=== PATIENT | female | born 1965 | race Caucasian/White ===

== ENCOUNTER → 2020-04-18 18:29 | Outpatient (BNVA) | payer OTHER, SELFPAY | PROVIDERS: Visit Provider Nurse Practitioner Family | DX: S99.911A Unspecified injury of right ankle, initial encounter (principal); M79.671 Pain in right foot; W31.89XA Contact with other specified machinery, initial encounter | CPT/HCPCS: 73610; 73630 ==

== ENCOUNTER → 2020-06-03 13:42 | Outpatient (BNVA) | payer OTHER, SELFPAY | PROVIDERS: Visit Provider Obstetrics & Gynecology | DX: Z01.812 Encounter for preprocedural laboratory examination (principal) | CPT/HCPCS: 81025; 88305 ==

== ENCOUNTER 2020-06-22 09:00 | Outpatient (CLI) | payer OTHER, SELFPAY ==
--- NOTE | 2020-06-22 09:03 | MM_ITS ---
WS: [id number] BILATERAL DIGITAL SCREENING MAMMOGRAPHY WITH CAD CLINICAL INFORMATION: SCREENING HISTORY: Screening mammogram. No current complaints. COMPARISON: 018 TECHNIQUE: Bilateral CC and MLO views. FINDINGS: The breasts are composed of heterogeneous fibroglandular density tissue, which can limit the detectio n of small underlying mass lesions. No suspicious mass, asymmetry, calcifications, or architectural d istortion. No evidence of malignancy. Bilateral punctate calcifications are similar in appearance. MM/[place] [id number] IMPRESSION: BI-RADS: 2-Benign FOLLOW UP: 1 Year Follow-up Recommend return to annual screening mammography.
== END 2020-06-22 09:01 | disposition home or self-care (01) ==
LOC: RADSHAW 09:02
PROVIDERS: PCP Nurse Practitioner Family; Visit Provider Nurse Practitioner Family
DX: Z12.31 Encounter for screening mammogram for malignant neoplasm of breast (principal)
CPT/HCPCS: 77067

== ENCOUNTER → 2020-07-30 14:04 | Outpatient (BNVA) | payer OTHER, SELFPAY | PROVIDERS: PCP Nurse Practitioner Family; Referring Provider Nurse Practitioner Family; Visit Provider Podiatrist Foot & Ankle Surgery | DX: M25.571 Pain in right ankle and joints of right foot (principal); S93.431A Sprain of tibiofibular ligament of right ankle, initial encounter; X58.XXXA Exposure to other specified factors, initial encounter | CPT/HCPCS: 73620; 73630 ==

== ENCOUNTER 2020-08-23 12:44 | Outpatient (CLI) | payer OTHER, SELFPAY ==
--- NOTE | 2020-08-23 13:00 | MR_ITS ---
WS: [id number] MRI RIGHT ANKLE NONCONTRAST TECHNIQUE: Sagittal proton density, sagittal STIR, axial proton density, axial T1, axial T2 fat sat, coronal proton density, coronal proton density fat sat, coronal T2 fat sat. CLINICAL INFORMATION: S93.431A - Sprain of tibiofibular ligament of right ankle, initial encounter COMPARISON: None. FINDINGS: Normal ankle mortise. Normal medial and lateral malleolus. No avulsion fractures. Talus is normal in appearance. Normal calcaneus. No significant soft tissue edema. Distal Achilles is normal in appearan ce. Peroneal tendons are normal in appearance. Normal extensor compartment tendons. Small amount of t enosynovitis along the flexor compartment tendons tibialis posterior and flexor digitorum longus. Normal bone marrow signal in the tarsal bones. Proximal metatarsals appear normal. Normal plantar fas carmen. Anterior and posterior tibiofibular ligaments appear intact. Small joint effusion. Anterior talofibul ar ligament appears intact. MR/MR ankle RT wo con* [id number] IMPRESSION: 1. No significant widening of the syndesmosis. Anterior and posterior tibiofib ular ligaments appear intact. 2. Small joint effusion. 3. Small amount of tenosynovitis along the flexor compartment tendons describe d above. 4. Normal peroneal tendons and peroneal tendon sheath. 5. Normal talus and calcaneus. Normal medial and lateral malleolus. No avulsio n fractures.
== END 2020-08-23 12:45 | disposition home or self-care (01) ==
PROVIDERS: PCP Nurse Practitioner Family; Visit Provider Podiatrist Foot & Ankle Surgery
DX: S93.431A Sprain of tibiofibular ligament of right ankle, initial encounter (principal); X58.XXXA Exposure to other specified factors, initial encounter; M25.471 Effusion, right ankle; M65.871 Other synovitis and tenosynovitis, right ankle and foot
CPT/HCPCS: 73721

== ENCOUNTER → 2020-09-04 14:49 | Outpatient (BNVA) | payer OTHER, SELFPAY | PROVIDERS: PCP Nurse Practitioner Family | DX: Z20.828 Contact with and (suspected) exposure to other viral communicable diseases (principal) | CPT/HCPCS: 87635 ==

== ENCOUNTER → 2021-05-18 14:08 | Outpatient (BNVA) | payer OTHER, SELFPAY | PROVIDERS: PCP Nurse Practitioner Family; Visit Provider Family Medicine | DX: J45.20 Mild intermittent asthma, uncomplicated (principal) | CPT/HCPCS: 71046 ==

== ENCOUNTER 2022-08-08 10:42 | Outpatient (CLI) | payer OTHER, SELFPAY ==
--- NOTE | 2022-08-08 11:03 | XRR_ITS ---
PROCEDURE INFORMATION: Exam: XR Right Ankle Exam date and time: 08/08/2022 11:13 AM Age: 56 years old Clinical indication: Injury or trauma; Fall; Sprain or strain; Ankle; Right; Injury date: 08/07/22; Additional info: Right ankle pain after a fall TECHNIQUE: Imaging protocol: Radiologic exam of the Right ankle. Views: 3 or more views. Total images: 341 COMPARISON: MR ankle RT wo con* [id number] 08/23/2020 1:13 PM FINDINGS: Bones/joints: Small joint effusion. No acute fracture nor subluxation. No osseous erosion nor periosteal reaction. Soft tissues: Lateral soft tissue swelling is evident. XR/XR ankle RT min 3V* [id number] IMPRESSION: 1. Small joint effusion. 2. Lateral soft tissue swelling is evident. 3. No acute osseous pathology.
== END 2022-08-08 10:43 | disposition home or self-care (01) ==
PROVIDERS: PCP Family Medicine; Visit Provider Clinical Nurse Specialist Adult Health
DX: M25.571 Pain in right ankle and joints of right foot (principal); W19.XXXA Unspecified fall, initial encounter; M25.471 Effusion, right ankle
CPT/HCPCS: 73610

== ENCOUNTER → 2022-08-23 10:21 | Outpatient (BNVA) | payer OTHER, SELFPAY | PROVIDERS: PCP Family Medicine; Visit Provider Podiatrist Foot & Ankle Surgery | DX: S82.891A Other fracture of right lower leg, initial encounter for closed fracture (principal); W19.XXXA Unspecified fall, initial encounter; Y92.512 Supermarket, store or market as the place of occurrence of the external cause; S93.491A Sprain of other ligament of right ankle, initial encounter | CPT/HCPCS: 73610; 73630 ==

== ENCOUNTER 2022-08-23 10:53 | Outpatient (CLI) | payer OTHER, SELFPAY | END 2022-08-23 10:54 | disposition home or self-care (01) | LOC: SPT 10:53 | PROVIDERS: PCP Family Medicine; Visit Provider Podiatrist Foot & Ankle Surgery | DX: Z46.89 Encounter for fitting and adjustment of other specified devices (principal); S93.401D Sprain of unspecified ligament of right ankle, subsequent encounter; X58.XXXD Exposure to other specified factors, subsequent encounter | CPT/HCPCS: 97760; L1902 ==

== ENCOUNTER → 2022-10-27 16:55 | Outpatient (BNVA) | payer BC, MEDICAID, SELFPAY | PROVIDERS: PCP Family Medicine; Visit Provider Obstetrics & Gynecology | DX: Z01.419 Encounter for gynecological examination (general) (routine) without abnormal findings (principal); Z12.39 Encounter for other screening for malignant neoplasm of breast; Z12.11 Encounter for screening for malignant neoplasm of colon; Z12.4 Encounter for screening for malignant neoplasm of cervix | CPT/HCPCS: 87624 ==

== ENCOUNTER 2022-11-02 13:24 | Outpatient (CLI) | payer BC, MEDICAID, SELFPAY ==
--- NOTE | 2022-11-02 13:34 | MM_ITS ---
WS: [id number] BILATERAL 3D TOMOSYNTHESIS DIGITAL SCREENING MAMMOGRAPHY WITH CAD CLINICAL INFORMATION: Z01.419 - Encounter for gynecological examination (genera... HISTORY: Screening mammogram. No current complaints. COMPARISON: June 22, 2020 TECHNIQUE: Bilateral CC and MLO views. FINDINGS: The breasts are composed of heterogeneous fibroglandular density tissue, which can limit the detectio n of small underlying mass lesions. No suspicious mass, asymmetry, calcifications, or architectural d istortion. No evidence of malignancy. A few incidental punctate calcifications similar in appearance. Stable clustered calcifications RIGHT breast. MM/[place] [id number] IMPRESSION: BI-RADS: 2-Benign FOLLOW UP: 1 Year Follow-up Recommend return to annual screening mammography.
== END 2022-11-02 13:25 | disposition home or self-care (01) ==
LOC: RAD 13:28
PROVIDERS: PCP Family Medicine; Visit Provider Obstetrics & Gynecology
DX: Z12.39 Encounter for other screening for malignant neoplasm of breast (principal)
CPT/HCPCS: 77063; 77067

== ENCOUNTER 2022-11-23 14:54 | Outpatient (CLI) | payer BC, MEDICAID, SELFPAY ==
--- NOTE | 2022-11-23 15:15 | MR_ITS ---
WS: [id number] EXAMINATION: MR foot RT wo con* [id number] ORDER DATE: 11/23/2022 2:58 PM COMPARISON: MRI ankle August 23, 2020 HISTORY: To rule out tendon tear CONTRAST: None. TECHNIQUE: Sagittal T1, sagittal STIR, coronal PD, coronal T2, axial T1, axial T2, and axial PD imagi ng with fat saturation technique. FINDINGS: Normal anatomic alignment. Normal talar dome. Small amount of edema at the tip of the media l malleolus consistent with a tiny tiny nondisplaced avulsion fracture. This is only well visualized on the coronal STIR imaging. Deltoid ligament appears intact. Normal lateral malleolus. Distal Achilles is normal in appearance. N ormal peroneal tendon sheaths. Normal extensor and flexor compartment tendons. ATF and PTF appear int act. Normal bone marrow signal in the visualized fibula. Tiny ankle effusion. Normal bone marrow signal in the metatarsals. Normal navicular. Normal talonavicular articulation. No rmal cuboid. Joint space narrowing at the PIP and DIP joints. A few small erosions in the heads of th e metatarsals. Degenerative cyst in the 3rd middle phalanx. MR/MR foot RT wo con* [id number] IMPRESSION: 1. Small amount of edema with a tiny suspected avulsion at the tip of the medi al malleolus. This appears new since August 23, 2020. Deltoid ligament appear s intact. 2. Normal ankle mortise. Normal lateral malleolus. 3. ATF appears intact. 4. Normal bone marrow signal in the metatarsals with a few small erosions in t he metatarsal heads. 5. Normal talus and calcaneus. 6. Normal ATF. 7. Degenerative cyst involving the 3rd middle phalanx. 8. No other suspicious findings.
== END 2022-11-23 14:55 | disposition home or self-care (01) ==
LOC: RAD 14:57
PROVIDERS: PCP Family Medicine; Visit Provider Podiatrist Foot & Ankle Surgery
DX: M25.571 Pain in right ankle and joints of right foot (principal)
CPT/HCPCS: 73718

== ENCOUNTER 2023-03-10 10:03 | Emergency (ER) | payer BC, MEDICAID, SELFPAY ==
[2023-03-10 10:08] VITALS: BP 162/97; PULSE 68; RESP 16; TEMP 36.5; O2SAT 100; BMI 27.6
--- NOTE | 2023-03-10 10:15 | CTR_ITS ---
PROCEDURE INFORMATION: Exam: CT Abdomen And Pelvis Without Contrast Exam date and time: 03/10/2023 10:26 AM Age: 57 years old Clinical indication: Abdominal pain; Flank; Right; Additional info: Right flank pain TECHNIQUE: Imaging protocol: Computed tomography of the abdomen and pelvis without contrast. Radiation optimization: All CT scans at this facility use at least one of these dose optimization techniques: automated exposure control; mA and/or kV adjustment per patient size (includes targeted exams where dose is matched to clinical indication); or iterative reconstruction. REPORTING DATA: Count of CT and Cardiac NM exams in prior 12 months: This patient has received 0 known CTs and 0 known cardiac nuclear medicine studies in the 12 months prior to the current study. COMPARISON: CR XR chest 2V* [id number] 05/18/2021 5:49 PM RADIATION DOSE METRICS: Total DLP (mGy-cm): 662.49 FINDINGS: Liver: Incompletely characterized low-density lesion measuring 2.5 cm in the left hepatic lobe. Gallbladder and bile ducts: Normal. No calcified stones. No ductal dilation. Pancreas: Normal. No ductal dilation. Spleen: Normal. No splenomegaly. Adrenal glands: Normal. No mass. 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 No hydronephrosis or nephroureterolithiasis. Stomach and bowel: Unremarkable. No obstruction. No mucosal thickening. Appendix: No evidence of appendicitis. Intraperitoneal space: Unremarkable. No free air. No significant fluid collection. Vasculature: Unremarkable. No abdominal aortic aneurysm. Lymph nodes: Unremarkable. No enlarged lymph nodes. Urinary bladder: Unremarkable as visualized. Reproductive: Unremarkable as visualized. Bones/joints: Mild dextrocurvature of the thoracolumbar spine. Soft tissues: Unremarkable. CT/CT abdomen pelvis wo con [id number] IMPRESSION: 1. No acute findings. 2. Incompletely characterized low-density lesion measuring 2.5 cm in the left hepatic lobe. This could be further evaluated with MRI.
[2023-03-10 10:24] LABS: Basophils % 0.4 %; Eosinophils # 0.2 10^3/uL (0.0-0.8); Eosinophils % 3.2 %; Hematocrit 46.6 % (37.0-47.0); Hemoglobin 15.4 g/dL (11.5-15.3); Lymphocytes # 2.5 10^3/uL (0.8-4.8); Lymphocytes % 43.8 %; Mean Corpuscular Hemoglobin 28.4 pg (28.0-34.0); Mean Corpuscular Volume 85.8 fl (81-99); Mean Platelet Volume 11.5 fL (7.4-10.4); Monocytes # 0.4 10^3/uL (0.2-0.9); Monocytes % 6.6 %; Neutrophils # 2.58 10^3/uL (1.8-7.7); Nucleated Red Blood Cells % 0 %; Platelet Count 170 10^3/cmm (130-400); Red Blood Count 5.43 10^6/uL (4.1-5.3); Red Cell Distribution Width 13.7 % (12.1-15.1); White Blood Count 5.6 10^3/uL (4.0-10.0)
[2023-03-10] MEDS: ketorolac 30 mg/mL INJ IVP (10:34)
[2023-03-10 10:47] LABS: Glucose Urine UA Norm (Normal); Ketones Urine Negative (Negative); Protein Urine Neg (Negative); Specific Gravity, Urine 1.005 (1.005-1.030); Urine Appearance Clear (CLEAR); Urine Color Yellow (Yellow); pH Urine 7 (5-7)
[2023-03-10 10:48] LABS: Add Urine Culture? No; Add Urine Microscopic? YES; Bacteria Urine TRACE /hpf; Bilirubin Urine Neg (Negative); Blood Urine 2+ (Negative); Leukocyte Esterase Urine Negative (Negative); Nitrate Urine Negative (Negative); RBC Urine RARE /hpf (0-2); Squamous Epithelial Cell Urine 0-4 /hpf (0-5); Urobilinogen Urine Norm (Negative)
[2023-03-10 11:02] LABS: Alanine Aminotransferase 18 U/L (0-33); Albumin Level 4.7 g/dL (3.5-5.2); Alkaline Phosphatase 82 U/L (35-105); Anion Gap 11.8 (5-19); Aspartate Amino Transferase 14 U/L (0-32); Blood Urea Nitrogen 12 mg/dL (6-20); Calcium 9.4 mg/dL (8.5-10.5); Carbon Dioxide 28 mmol/L (22-29); Chloride 100 mmol/L (98-107); Globulin 3.1 g/dL (1.3-4.6); Glomerular Filtration Rate 74.5 mL/min (90-130); Glucose 85 mg/dL (65-115); Osmolality Calculated 281 mOsm/kg (285-295); Potassium 3.8 mmol/L (3.5-5.1); Sodium 136 mmol/L (136-145); Total Bilirubin 0.5 mg/dL (0.15-1.2); Total Protein 7.8 g/dL (6.6-8.7)
--- NOTE | 2023-03-10 11:15 | PC.NURSE ---
ASSUMED CARE FROM KRISSY DIEZ AT 1115
--- NOTE | 2023-03-10 11:16 | W.ED.ABDPA2 ---
HPI - Abdominal Pain General: Chief Complaint: Abdominal Pain Stated Complaint: back pain, dizzy Time Seen by Provider: 03/10/23 10:04 History of Present Illness: Patient presents to the ER with complaints of right-sided low back pain since yesterday. Patient states she drove 6 hours yesterday and the pain is gotten worse this morning. Patient does have a history of kidney stones which this feels similar to. Patient has not had any change in urination or hematuria. Pain is dull achy in nature on her right low back does radiate, to her right front region. It is worse with movement. It is not relieved or improved with not moving. 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) Surgical History No history of previous surgery Family History Father Hypertension Stroke Mother Lymphoma Denies family history of Diabetes Clotting disorder Hyperlipidemia Anesthesia complication Bleeding disorder Social History Substance/Drug Use: never Physical Exam Const: COMMON NORMALS: no acute distress, average body habitus, patient oriented x3, no limitations, healthy appearing, alert and well nourished HENMT: COMMON NORMALS: normocephalic, atraumatic, hearing grossly normal bilaterally, external ears normal, Normal external nose present and moist oral mucous membranes HEAD & SCALP: normocephalic and atraumatic NOSE: Normal external nose present EXTERNAL EAR: Yes external ears normal Eye: COMMON NORMALS: Equal, round and reactive pupils present, EOMs intact bilaterally, conjunctivae normal and no scleral icterus CONJUNCTIVA: Yes conjunctivae normal PUPIL: Yes Equal, round and reactive pupils present Neck/C-Spine: COMMON NORMALS: full ROM, no lymphadenopathy, supple, no meningeal signs, no JVD and Thyroid normal THYROID: Thyroid normal Lymph: LYMPHATIC: no lymphadenopathy noted and no lymphedema noted Chest: COMMONS NORMALS: normal inspection of the chest and normal palpation of entire chest wall Resp: COMMON NORMALS: normal respiratory effort, No retractions, No use of accessory muscles and clear to auscultation bilaterally AUSCULTATION: clear to auscultation bilaterally Cardio: COMMON NORMALS: no JVD, regular rate, regular rhythm, S1 normal heart sound present, S2 normal heart sound present, No gallops present (Cardio), No clicks present (Cardio), No murmurs present (Cardio) and No rub (Cardio) RATE: regular rate RHYTHM: regular rhythm HEART SOUNDS: S1 normal heart sound present and S2 normal heart sound present GI: COMMON NORMALS: Normal to inspection, nondistended, normoactive bowel sounds present, Soft to palpation, non-tender, No hepatosplenomegaly present and no masses PALPATION: Yes Soft to palpation and Yes No hepatosplenomegaly present Back/Pelvis: OTHER: Right lower lumbar paraspinal muscle tenderness with palpation. No overt vertebral tenderness. Side normal. Neuro: COMMON NORMALS: patient oriented x3 SENSORIUM/ORIENTATION: Yes alert MENINGEAL SIGNS: Yes no meningeal signs Course Vital Signs: Vital signs: Vital Signs Temperature 97.7 F 03/10/23 10:08 Pulse Rate 68 03/10/23 10:08 Respiratory Rate 16 03/10/23 10:08 Blood Pressure 162/97 03/10/23 10:08 Pulse Oximetry 100 03/10/23 10:08 Oxygen Delivery Me thod Room Air 03/10/23 10:08 MDM - Abdominal Pain Medical Decision Making Patient presents today after driving 600 miles yesterday with right-sided lumbar back pain. Patient thought she may have a kidney stone or kidney infection. The lab work revealed that this is negative. Patient is tender to palpate over the right paraspinal musculature. Is thought that patient just has right-sided lumbar paraspinal muscular pain. Patient was given Toradol here with some relief. Patient be discharged home on cyclobenzaprine. Patient is currently already on meloxicam. And is to follow-up with her family doc in the next 1 week. Differential Diagnosis Unlikely abdominal pain, acute appendicitis, calculus of kidney, constipation, diverticulitis, endometriosis, gastroenteritis, pancreatitis or small bowel obstruction Medical Records I reviewed the patient's medical records. Lab Data I reviewed the patient's lab results. 03/10/23 10:19 03/10/23 10:19 Labs/Radiology: Radiology Impressions Abdomen/Pelvis CT 03/10/23 10:15 IMPRESSION: 1. No acute findings. 2. Incompletely characterized low-density lesion measuring 2.5 cm in the left hepatic lobe. This could be further evaluated with MRI. Laboratory Results WBC 5.6 10^3/uL (4.0-10.0) 03/10/23 10:19 RBC 5.43 10^6/uL (4.1-5.3) H 03/10/23 10:19 Hgb 15.4 g/dL (11.5-15.3) H 03/10/23 10:19 Hct 46.6 % (37.0-47.0) 03/10/23 10:19 MCV 85.8 fl (81-99) 03/10/23 10:19 MCH 28.4 pg (28.0-34.0) 03/10/23 10:19 MCHC 33.0 g/dL (30.0-36.0) 03/10/23 10:19 RDW 13.7 % (12.1-15.1) 03/10/23 10:19 Plt Count 170 10^3/cmm (130-400) 03/10/23 10:19 MPV 11.5 fL (7.4-10.4) H 03/10/23 10:19 Neut % (Auto) 46.0 % 03/10/23 10:19 Lymph % (Auto) 43.8 % 03/10/23 10:19 [place]ton % (Auto) 6.6 % 03/10/23 10:19 Eos % (Auto) 3.2 % 03/10/23 10:19 Baso % (Auto) 0.4 % 03/10/23 10:19 Neut # (Auto) 2.58 10^3/uL (1.8-7.7) 03/10/23 10:19 Lymph # (Auto) 2.5 10^3/uL (0.8-4.8) 03/10/23 10:19 Charlton # (Auto) 0.4 10^3/uL (0.2-0.9) 03/10/23 10:19 Eos # (Auto) 0.2 10^3/uL (0.0-0.8) 03/10/23 10:19 Baso # (Auto) 0.0 10^3/uL (0.0-0.1) 03/10/23 10:19 Nucleated RBC % (auto) 0 % 03/10/23 10:19 Nucleated RBCs # 0.0 /100WBC 03/10/23 10:19 Sodium 136 mmol/L (136-145) 03/10/23 10:19 Potassium 3.8 mmol/L (3.5-5.1) 03/10/23 10:19 Chloride 100 mmol/L (98-107) 03/10/23 10:19 Carbon Dioxide 28 mmol/L (22-29) 03/10/23 10:19 Anion Gap 11.8 (5-19) 03/10/23 10:19 BUN 12 mg/dL (6-20) 03/10/23 10:19 Creatinine 0.8 mg/dL (0.5-0.9) 03/10/23 10:19 GFR Calculation 74.5 mL/min (90-130) L 03/10/23 10:19 Glucose 85 mg/dL (65-115) 03/10/23 10:19 Calculated Osmolality 281 mOsm/kg (285-295) L 03/10/23 10:19 Calcium 9.4 mg/dL (8.5-10.5) 03/10/23 10:19 Total Bilirubin 0.5 mg/dL (0.15-1.2) 03/10/23 10:19 AST 14 U/L (0-32) 03/10/23 10:19 ALT 18 U/L (0-33) 03/10/23 10:19 Alkaline Phosphatase 82 U/L (35-105) 03/10/23 10:19 Total Protein 7.8 g/dL (6.6-8.7) 03/10/23 10:19 Albumin 4.7 g/dL (3.5-5.2) 03/10/23 10:19 Globulin 3.1 g/dL (1.3-4.6) 03/10/23 10:19 Urine Color Yellow (Yellow) 03/10/23 10:27 Urine Appearance Clear (CLEAR) 03/10/23 10:27 Urine pH 7 (5-7) 03/10/23 10:27 Ur Specific [place] 1.005 (1.005-1.030) 03/10/23 10:27 Urine Protein Neg (Negative) 03/10/23 10:27 Urine Glucose (UA) Norm (Normal) 03/10/23 10:27 Urine Ketones Negative (Negative) 03/10/23 10:27 Urine Blood 2+ (Negative) H 03/10/23 10:27 Urine Nitrate Negative (Negative) 03/10/23 10:27 Urine Bilirubin Neg (Negative) 03/10/23 10:27 Urine Urobilinogen Norm mg/dL (Negative) 03/10/23 10:27 Ur Leukocyte Esterase Negative (Negative) 03/10/23 10:27 Urine RBC Rare /hpf (0-2) 03/10/23 10:27 Urine WBC None /hpf (0-5) 03/10/23 10:27 Ur Squamous Epith Cells 0-4 /hpf (0-5) H 03/10/23 10:27 Amorphous Sediment Not Reportable 03/10/23 10:27 Urine Bacteria Trace /hpf (NONE) 03/10/23 10:27 Discharge Plan Discharge Patient Disposition: Home Clinical Impression: Low back pain Qualifiers: Chronicity: acute Back pain laterality: right Sciatica presence: without sciatica Qualified Code(s): M54.50 - Low back pain, unspecified Condition: Stable Prescriptions: New cyclobenzaprine 5 mg tablet 5 mg PO TID PRN (Reason: muscle spasm/pain) Qty: 14 0RF No Action cetirizine 5 mg tablet 5 mg PO DAILY PRN olopatadine [Pataday Once Daily Relief] 0.2 % drops See Rx Instructions ophthalmic (eye) QAM 30 Days Qty: 2.5 5RF Rx Instructions: 1 drop in each eye once daily ophthalmic (eye) every morning; diclofenac sodium [Voltaren Arthritis Pain] 1 % gel 4 g topical BID 30 Days Qty: 100 0RF Rx Instructions: apply to single knee, ankle, foot; for foot includes sole/toes/top of foot meloxicam 15 mg tablet 15 mg PO DAILY 30 Days Qty: 30 0RF albuterol sulfate 90 mcg/actuation HFA aerosol inhaler 1 inh inhalation QID PRN (Reason: shortness of breath or wheezing) Qty: 8.5 3RF fluticasone propion-salmeterol [Advair Diskus] 250-50 mcg/dose blister with device 1 inh inhalation BID Qty: 60 1RF fluticasone propionate [Flonase Allergy Relief] 50 mcg/actuation spray,suspension 2 spray intranasal DAILY 30 Days Qty: 16 5RF Rx Instructions: administer into each nostril. At least a week to determine benefit Discharge Orders: Discharge ED (Routine); Ordered 03/10/23 Ordered By: Fer Aguilar Referrals: Luisana Mendez MD [Primary Care Provider] - 1 week Patient Instructions: Acute Low Back Pain (ED) Activity Restrictions/Additional Instructions: Please take the medicine as directed, please push fluids. Please follow-up with your family practice doc within the next 7 days or as needed. Please return to the ER if symptoms worsen. Coding Level of Care Code ED Circulation Manager for Verónica Coy
== END 2023-03-10 11:41 | disposition home or self-care (01) ==
PROVIDERS: Emergency Provider Emergency Medicine; PCP Family Medicine
DX: M54.50 Low back pain, unspecified (principal); R42 Dizziness and giddiness
CPT/HCPCS: 74176; 80053; 81001; 85025; 96374; 99284; J1885

== ENCOUNTER 2024-04-15 09:00 | Outpatient (CLI) | payer BC, MEDICAID, SELFPAY ==
--- NOTE | 2024-04-15 09:13 | MM_ITS ---
WS: [id number] BILATERAL 3D TOMOSYNTHESIS DIGITAL SCREENING MAMMOGRAPHY WITH CAD CLINICAL INFORMATION: SCREENING HISTORY: Screening mammogram. No current complaints. COMPARISON: 2022 TECHNIQUE: Bilateral CC and MLO views. FINDINGS: The breasts are composed of nodular heterogeneous fibroglandular density tissue, which can limit the detection of small underlying mass lesions. No suspicious mass, asymmetry, calcifications, or archite ctural distortion. No evidence of malignancy. Incidental punctate and stable clustered calcifications RIGHT breast. Nodular RIGHT breast tissue is similar in appearance MM/[place] [id number] IMPRESSION: BI-RADS: 2-Benign FOLLOW UP: 1 Year Follow-up Recommend return to annual screening mammography.
== END 2024-04-15 09:12 | disposition home or self-care (01) ==
PROVIDERS: PCP Family Medicine; Visit Provider Family Medicine
DX: Z12.31 Encounter for screening mammogram for malignant neoplasm of breast (principal); R92.333 Mammographic heterogeneous density, bilateral breasts; R92.1 Mammographic calcification found on diagnostic imaging of breast
CPT/HCPCS: 77063; 77067

== ENCOUNTER 2024-11-11 10:12 | Outpatient (CLI) | payer BC, MEDICAID, SELFPAY ==
--- NOTE | 2024-11-11 10:21 | XRR_ITS ---
PROCEDURE INFORMATION: Exam: XR Chest Exam date and time: 11/11/2024 10:37 AM Age: 59 years old Clinical indication: Other: Left thoracic pain; Intermittent mid back pain mainly on left side, progressively worse last 2-3 wks TECHNIQUE: Imaging protocol: Radiologic exam of the chest. Views: 2 views. COMPARISON: CR XR chest 2V* [id number] 05/18/2021 5:49 PM FINDINGS: Lungs: No focal lung consolidation. Pleural spaces: No pleural effusion. No pneumothorax. Heart/Mediastinum: No cardiomegaly. Bones/joints: No acute bony abnormality. XR/XR chest 2V* [id number] IMPRESSION: No focal lung consolidation.
--- NOTE | 2024-11-11 10:21 | XRR_ITS ---
PROCEDURE INFORMATION: Exam: XR Thoracic Spine Exam date and time: 11/11/2024 10:37 AM Age: 59 years old Clinical indication: Pain in thoracic spine; Intermittent mid back pain mainly on left side, progressively worse last 2-3 wks; Additional info: Pain left rib cage TECHNIQUE: Imaging protocol: Radiologic exam of the thoracic spine. Views: 3 views. COMPARISON: CT abdomen pelvis wo con [id number] 03/10/2023 10:26 AM FINDINGS: Bones/joints: No acute fracture. Normal alignment. Soft tissues: Unremarkable. XR/XR thoracic spine 2V [id number] IMPRESSION: No acute findings. If symptoms persist, consider further evaluation with cross-sectional imaging.
== END 2024-11-11 10:13 | disposition home or self-care (01) ==
PROVIDERS: PCP Family Medicine; Visit Provider Family Medicine
DX: M54.6 Pain in thoracic spine (principal); M54.14 Radiculopathy, thoracic region
CPT/HCPCS: 71046; 72070

== ENCOUNTER → 2025-01-22 12:50 | Outpatient (BNVA) | payer BC, MEDICAID, SELFPAY | PROVIDERS: PCP Family Medicine; Visit Provider Nurse Practitioner Women's Health | DX: Z12.4 Encounter for screening for malignant neoplasm of cervix (principal); Z12.39 Encounter for other screening for malignant neoplasm of breast | CPT/HCPCS: 87624 ==

== ENCOUNTER → 2025-02-19 08:55 | Outpatient (BNVA) | payer BC, MEDICAID, SELFPAY | PROVIDERS: PCP Family Medicine; Visit Provider Nurse Practitioner Women's Health | DX: Z87.42 Personal history of other diseases of the female genital tract (principal) | CPT/HCPCS: 87624 ==

== ENCOUNTER 2025-04-17 09:00 | Outpatient (CLI) | payer BC, MEDICAID, SELFPAY ==
--- NOTE | 2025-04-17 09:00 | MM_ITS ---
WS: [id number] BILATERAL SCREENING DIGITAL TOMOSYNTHESIS MAMMOGRAM WITH CAD HISTORY: Z12.39 - Encounter for other screening for malignant neop... COMPARISON: 04/15/2024, 11/02/2022, 06/22/2020, Bilateral CC and MLO views with tomosynthesis and synthetic mammography submitted. Computer aided detection analyzed. Breast composition: The breasts are heterogeneously dense, which may obscure small masses. No suspicious masses, microcalcifications or architectural distortion. There are numerous calcifications within each breast. No obvious change. These calcifications have slowly increased over several years. There is no single cluster that appears more suspicious. No distortion. MM/MM scr BI tomosynthesis [id number] IMPRESSION: BI-RADS: 2 - Benign FOLLOW UP: 1 Year Follow-up
== END 2025-04-17 09:01 | disposition home or self-care (01) ==
LOC: RAD 09:02
PROVIDERS: PCP Family Medicine; Visit Provider Nurse Practitioner Women's Health
DX: Z12.31 Encounter for screening mammogram for malignant neoplasm of breast (principal)
CPT/HCPCS: 77063; 77067